=== PATIENT | female | born 1930 | race Caucasian/White ===

== ENCOUNTER 2019-08-13 13:33 | Inpatient (IN) ==
[2019-08-13] MEDS ORDERED: 0.9 % Sodium Chloride 1,000 ML IVC ONE (14:11)
[2019-08-13] MEDS ORDERED: cefTRIAXone 1,000 MG in Water for inj. (sterile) 10 ML IVP ONE (14:11)
[2019-08-13] MEDS ORDERED: Ondansetron 4 MG/2 ML VIAL IVP ONE (14:12)
[2019-08-13] MEDS ORDERED: Morphine Sulfate 2 MG/ML SYRINGE IVP ONE (14:12)
[2019-08-13 14:25] LABS: Bilirubin,Urine Small (Negative); Blood,Urine Negative (Negative); Clarity,Urine Slightly Cloudy (Clear); Color,Urine Yellow (Yellow); Glucose,Urine (UA) Normal (Normal); Ketones,Urine Negative (Negative); Leukocyte Esterase,Urine Small (Negative); Nitrite,Urine Negative (Negative); Protein,Urine Negative (Neg-Trace); Specific Gravity,Urine 1.025 (1.010-1.025); Urobilinogen,Urine Normal (Normal)
[2019-08-13 14:27] LABS: Bacteria,Urine Many per hpf (None-Few); Squamous Epithelial Cell,Urine Few per lpf (None-Few); WBC,Urine 50-100 per hpf (0-3)
[2019-08-13 14:28] LABS: Mucus,Urine Few (Few)
[2019-08-13 14:38] LABS: Basophils % 0.2 %; Eosinophils % 0.1 %; Hematocrit 35.5 % (35.3-44.9); Hemoglobin 11.5 g/dL (11.5-15.4); Immature Granulocytes % 0.5 % (0-4); Lymphocytes # 1.9 K/mcL (0.6-4.6); Lymphocytes % 10.1 %; Mean Corpuscular HGB Conc 32.4 g/dL (31.6-35.5); Mean Corpuscular Hemoglobin 29.3 pg (28.0-33.3); Mean Corpuscular Volume 90.6 fL (83.0-100.0); Mean Platelet Volume 10.4 fL (9.4-12.4); Monocytes % 5.2 %; Neutrophils # 15.4 K/mcL (1.6-8.9); Platelet Count 147 K/mcL (140-400); Red Blood Count 3.92 M/mcL (3.82-4.97); Red Cell Distribution Width 14.3 % (11.5-14.5); Segmented Neutrophils % 83.9 %; White Blood Count 18.4 K/mcL (4.3-11.1)
[2019-08-13 14:45] LABS: INR 1.1; Prothrombin Time 12.8 Seconds (9.4-12.1)
[2019-08-13 14:48] LABS: Activated Partial Thrombo Time 26.3 Seconds (26.0-36.0)
[2019-08-13 14:57] LABS: Albumin 3.7 g/dL (3.5-5.7); Albumin/Globulin Ratio 1.7 (1.1-2.2); Bilirubin,Direct 0.2 mg/dL (0.0-0.2); Bilirubin,Indirect 0.7 mg/dL (0.0-1.0); Bilirubin,Total 0.9 mg/dL (0.3-1.0); Calcium 8.9 mg/dL (8.6-10.3); Globulin 2.2 g/dL (2.4-3.5); Magnesium 2.3 mg/dL (1.6-2.6); Phosphorous 3.9 mg/dL (2.7-4.5); Potassium 4.7 mEq/L (3.5-5.1); Total Protein 5.9 g/dL (6.4-8.9); Troponin I 0.03 ng/mL (< 0.04)
[2019-08-13] MEDS ORDERED: Ibuprofen 400 MG TABLET PO PRN (16:27)
[2019-08-13] MEDS ORDERED: Ondansetron 4 MG/2 ML VIAL IVP PRN (16:27)
[2019-08-13] MEDS ORDERED: Naloxone 0.4 MG/ML INJ IVP PRN (16:27)
[2019-08-13] MEDS: Bumetanide 1 MG TABLET PO SCH (18:23)
[2019-08-13] MEDS: Aspirin 81 MG TAB.CHEW PO SCH (18:23)
[2019-08-13] MEDS: 0.9 % Sodium Chloride 1,000 ML IVC SCH (19:01)
[2019-08-13] MEDS: Melatonin 3 MG TABLET PO SCH (20:02)
[2019-08-13] MEDS: traZODone 50 MG TABLET PO SCH (20:02)
[2019-08-13] MEDS: *HR* HYDROcodone/Acet 5/325 mg TABLET PO SCH (20:02)
[2019-08-13] MEDS ORDERED: NIFEdipine XL (24 HR) 30 MG TAB.ER.24 PO SCH (21:00)
[2019-08-14] MEDS: *HR* OxyCODONE Immed Rel 5 MG TABLET PO PRN ×3 (02:41→14:07)
[2019-08-14] MEDS: 0.9 % Sodium Chloride 1,000 ML IVC SCH (05:51)
[2019-08-14] MEDS: Levothyroxine 25 MCG TABLET PO SCH ×2 (06:41→06:59)
[2019-08-14 07:08] LABS: Basophils % 0.3 %; Eosinophils # 0.2 K/mcL (0.0-0.6); Eosinophils % 1.3 %; Hematocrit 27.8 % (35.3-44.9); Hemoglobin 8.9 g/dL (11.5-15.4); Immature Granulocytes % 0.6 % (0-4); Lymphocytes # 1.7 K/mcL (0.6-4.6); Lymphocytes % 15.1 %; Mean Corpuscular Hemoglobin 29.3 pg (28.0-33.3); Mean Corpuscular Volume 91.4 fL (83.0-100.0); Mean Platelet Volume 10.4 fL (9.4-12.4); Monocytes # 0.6 K/mcL (0.0-1.3); Monocytes % 5.6 %; Neutrophils # 8.8 K/mcL (1.6-8.9); Platelet Count 109 K/mcL (140-400); Red Blood Count 3.04 M/mcL (3.82-4.97); Red Cell Distribution Width 14.7 % (11.5-14.5); Segmented Neutrophils % 77.1 %; White Blood Count 11.4 K/mcL (4.3-11.1)
[2019-08-14 07:37] LABS: Calcium 7.9 mg/dL (8.6-10.3); Potassium 4.7 mEq/L (3.5-5.1)
[2019-08-14] MEDS: cefTRIAXone 1,000 MG in 0.9 % Sodium Chloride Mini Bag 100 ML IVPB SCH (08:52)
[2019-08-14] MEDS: Cyanocobalamin (B-12) 1,000 MCG TABLET PO SCH (08:54)
[2019-08-14] MEDS: Cholecalciferol (D-3) 1,000 UNIT (25MCG) TABLET PO SCH (08:54)
[2019-08-14] MEDS: Tobramycin/Dex Opth DROPS 2.5 ML BOTTLE RIGHT EYE SCH ×2 (13:51→20:28)
[2019-08-14] MEDS: Tobramycin/Dex Opth DROPS 2.5 ML BOTTLE LEFT EYE SCH ×2 (13:51→20:28)
[2019-08-14] MEDS ORDERED: *HR* LORazepam 2 MG/ML VIAL IVP PRN (14:20)
[2019-08-14] MEDS: Melatonin 3 MG TABLET PO SCH (20:29)
[2019-08-14] MEDS: *HR* HYDROcodone/Acet 5/325 mg TABLET PO SCH (20:29)
[2019-08-14] MEDS: Lactobacillus 1 EACH CAP.SPRINK PO SCH (20:29)
[2019-08-14] MEDS: traZODone 50 MG TABLET PO SCH (20:29)
[2019-08-15] MEDS: *HR* OxyCODONE Immed Rel 5 MG TABLET PO PRN ×3 (00:54→18:51)
[2019-08-15] MEDS: Tobramycin/Dex Opth DROPS 2.5 ML BOTTLE RIGHT EYE SCH ×3 (04:50→20:12)
[2019-08-15] MEDS: Tobramycin/Dex Opth DROPS 2.5 ML BOTTLE LEFT EYE SCH ×3 (04:50→20:12)
[2019-08-15] MEDS: Levothyroxine 25 MCG TABLET PO SCH (06:40)
[2019-08-15 07:03] LABS: Basophils % 0.4 %; Eosinophils # 0.4 K/mcL (0.0-0.6); Eosinophils % 4.1 %; Hemoglobin 7.8 g/dL (11.5-15.4); Immature Granulocytes % 0.5 % (0-4); Lymphocytes # 1.8 K/mcL (0.6-4.6); Lymphocytes % 21.3 %; Mean Corpuscular HGB Conc 31.2 g/dL (31.6-35.5); Mean Corpuscular Volume 92.9 fL (83.0-100.0); Mean Platelet Volume 11.4 fL (9.4-12.4); Monocytes # 0.5 K/mcL (0.0-1.3); Neutrophils # 5.8 K/mcL (1.6-8.9); Red Blood Count 2.69 M/mcL (3.82-4.97); Red Cell Distribution Width 14.7 % (11.5-14.5); Segmented Neutrophils % 67.7 %; White Blood Count 8.6 K/mcL (4.3-11.1)
[2019-08-15 07:12] LABS: Platelet Count 87 K/mcL (140-400)
[2019-08-15 07:21] LABS: BUN/Creatinine Ratio 25 (6-26); Blood Urea Nitrogen 26 mg/dL (8-23); Carbon Dioxide 24 mEq/L (23-29); Chloride 108 mEq/L (98-107); Glucose 88 mg/dL (70-105); Osmolality,Calculated 286 (280-300); Potassium 4.5 mEq/L (3.5-5.1); Sodium 136 mEq/L (136-145); Uric Acid 5.9 mg/dL (2.3-7.6); eGFR For African Americans > 60 (> 60); eGFR For Non-African Americans 50 (> 60)
[2019-08-15 09:40] LABS: % Iron Saturation 6 % (15-50); Iron 13 mcg/dL (50-170); Transferrin 152 mg/dL (203-362)
[2019-08-15] MEDS: cefTRIAXone 1,000 MG in 0.9 % Sodium Chloride Mini Bag 100 ML IVPB SCH (09:56)
[2019-08-15 09:58] LABS: Ferritin 167 ng/mL (10-120)
[2019-08-15] MEDS: Lactobacillus 1 EACH CAP.SPRINK PO SCH ×2 (09:59→20:15)
[2019-08-15] MEDS: Cholecalciferol (D-3) 1,000 UNIT (25MCG) TABLET PO SCH (10:00)
[2019-08-15] MEDS: Cyanocobalamin (B-12) 1,000 MCG TABLET PO SCH (10:00)
[2019-08-15 11:35] LABS: Folate 18.7 ng/mL (3.0-16.0)
[2019-08-15] MEDS: Aspirin 81 MG TAB.CHEW PO SCH (17:25)
[2019-08-15] MEDS: Bumetanide 1 MG TABLET PO SCH (17:25)
[2019-08-15] MEDS: *HR* LORazepam 2 MG/ML VIAL IVP PRN (19:17)
[2019-08-15] MEDS: Melatonin 3 MG TABLET PO SCH (20:15)
[2019-08-15] MEDS: traZODone 50 MG TABLET PO SCH (20:16)
[2019-08-15] MEDS: *HR* HYDROcodone/Acet 5/325 mg TABLET PO SCH (20:16)
[2019-08-16] MEDS: Tobramycin/Dex Opth DROPS 2.5 ML BOTTLE RIGHT EYE SCH ×3 (05:00→21:44)
[2019-08-16] MEDS: Tobramycin/Dex Opth DROPS 2.5 ML BOTTLE LEFT EYE SCH ×3 (05:00→21:44)
[2019-08-16] MEDS: *HR* LORazepam 2 MG/ML VIAL IVP PRN ×3 (06:31→23:16)
[2019-08-16] MEDS: Ascorbic Acid 500 MG TABLET PO SCH (06:32)
[2019-08-16] MEDS: Levothyroxine 25 MCG TABLET PO SCH (06:32)
[2019-08-16] MEDS: *HR* OxyCODONE Immed Rel 5 MG TABLET PO PRN ×3 (06:36→23:12)
[2019-08-16] MEDS: *HR* Enoxaparin 30 MG/0.3 ML SYRINGE SQ SCH (08:15)
[2019-08-16 08:23] LABS: Basophils % 0.4 %; Eosinophils # 0.3 K/mcL (0.0-0.6); Eosinophils % 3.2 %; Hematocrit 23.8 % (35.3-44.9); Hemoglobin 7.6 g/dL (11.5-15.4); Immature Granulocytes % 0.8 % (0-4); Lymphocytes # 1.1 K/mcL (0.6-4.6); Lymphocytes % 14.7 %; Mean Corpuscular HGB Conc 31.9 g/dL (31.6-35.5); Mean Corpuscular Hemoglobin 29.5 pg (28.0-33.3); Mean Corpuscular Volume 92.2 fL (83.0-100.0); Mean Platelet Volume 10.7 fL (9.4-12.4); Monocytes # 0.7 K/mcL (0.0-1.3); Monocytes % 8.6 %; Neutrophils # 5.6 K/mcL (1.6-8.9); Red Blood Count 2.58 M/mcL (3.82-4.97); Red Cell Distribution Width 14.6 % (11.5-14.5); Segmented Neutrophils % 72.3 %; White Blood Count 7.8 K/mcL (4.3-11.1)
[2019-08-16 08:24] LABS: Platelet Count 84 K/mcL (140-400)
[2019-08-16 08:42] LABS: BUN/Creatinine Ratio 22 (6-26); Blood Urea Nitrogen 17 mg/dL (8-23); Calcium 7.6 mg/dL (8.6-10.3); Carbon Dioxide 23 mEq/L (23-29); Chloride 107 mEq/L (98-107); Glucose 90 mg/dL (70-105); Osmolality,Calculated 279 (280-300); Potassium 4.1 mEq/L (3.5-5.1); Sodium 134 mEq/L (136-145); eGFR For African Americans > 60 (> 60); eGFR For Non-African Americans > 60 (> 60)
[2019-08-16] MEDS: cefTRIAXone 1,000 MG in 0.9 % Sodium Chloride Mini Bag 100 ML IVPB SCH (10:17)
[2019-08-16] MEDS: Cyanocobalamin (B-12) 1,000 MCG TABLET PO SCH (10:20)
[2019-08-16] MEDS: Cholecalciferol (D-3) 1,000 UNIT (25MCG) TABLET PO SCH (10:20)
[2019-08-16] MEDS: Lactobacillus 1 EACH CAP.SPRINK PO SCH ×2 (10:21→21:42)
[2019-08-16] MEDS: traZODone 50 MG TABLET PO SCH (21:42)
[2019-08-16] MEDS: Melatonin 3 MG TABLET PO SCH (21:42)
[2019-08-16] MEDS: *HR* HYDROcodone/Acet 5/325 mg TABLET PO SCH (21:42)
[2019-08-17] MEDS: *HR* OxyCODONE Immed Rel 5 MG TABLET PO PRN ×2 (03:46→14:46)
[2019-08-17] MEDS: *HR* LORazepam 2 MG/ML VIAL IVP PRN ×2 (03:49→20:46)
[2019-08-17] MEDS: Tobramycin/Dex Opth DROPS 2.5 ML BOTTLE RIGHT EYE SCH ×3 (05:00→20:49)
[2019-08-17] MEDS: Tobramycin/Dex Opth DROPS 2.5 ML BOTTLE LEFT EYE SCH ×3 (05:00→20:49)
[2019-08-17] MEDS: Ascorbic Acid 500 MG TABLET PO SCH (06:35)
[2019-08-17] MEDS: Levothyroxine 25 MCG TABLET PO SCH (06:35)
[2019-08-17] MEDS: *HR* Enoxaparin 30 MG/0.3 ML SYRINGE SQ SCH (06:35)
[2019-08-17 06:56] LABS: Basophils % 0.4 %; Eosinophils # 0.2 K/mcL (0.0-0.6); Eosinophils % 3.2 %; Hematocrit 24.5 % (35.3-44.9); Hemoglobin 7.9 g/dL (11.5-15.4); Immature Granulocytes % 0.5 % (0-4); Lymphocytes # 1.9 K/mcL (0.6-4.6); Lymphocytes % 25.4 %; Mean Corpuscular HGB Conc 32.2 g/dL (31.6-35.5); Mean Corpuscular Hemoglobin 29.5 pg (28.0-33.3); Mean Corpuscular Volume 91.4 fL (83.0-100.0); Mean Platelet Volume 10.6 fL (9.4-12.4); Monocytes # 0.7 K/mcL (0.0-1.3); Monocytes % 9.4 %; Neutrophils # 4.6 K/mcL (1.6-8.9); Red Blood Count 2.68 M/mcL (3.82-4.97); Red Cell Distribution Width 14.4 % (11.5-14.5); Segmented Neutrophils % 61.1 %; White Blood Count 7.6 K/mcL (4.3-11.1)
[2019-08-17 06:59] LABS: Platelet Count 91 K/mcL (140-400)
[2019-08-17 07:28] LABS: Alanine Aminotransferase 17 Units/L (7-52); Albumin 2.8 g/dL (3.5-5.7); Albumin/Globulin Ratio 1.3 (1.1-2.2); Alkaline Phosphatase 52 Units/L (34-104); Aspartate Amino Transferase 20 Units/L (13-39); BUN/Creatinine Ratio 21 (6-26); Bilirubin,Total 0.9 mg/dL (0.3-1.0); Blood Urea Nitrogen 15 mg/dL (8-23); Calcium 7.8 mg/dL (8.6-10.3); Carbon Dioxide 23 mEq/L (23-29); Chloride 107 mEq/L (98-107); Globulin 2.2 g/dL (2.4-3.5); Glucose 85 mg/dL (70-105); Osmolality,Calculated 282 (280-300); Potassium 4.3 mEq/L (3.5-5.1); Sodium 136 mEq/L (136-145); eGFR For African Americans > 60 (> 60); eGFR For Non-African Americans > 60 (> 60)
[2019-08-17] MEDS ORDERED: cefTRIAXone 1,000 MG in Water for inj. (sterile) 10 ML IVPB SCH (09:00)
[2019-08-17] MEDS: Lactobacillus 1 EACH CAP.SPRINK PO SCH (09:34)
[2019-08-17] MEDS: Cyanocobalamin (B-12) 1,000 MCG TABLET PO SCH (09:34)
[2019-08-17] MEDS: Cholecalciferol (D-3) 1,000 UNIT (25MCG) TABLET PO SCH (09:34)
[2019-08-17] MEDS: Aspirin 81 MG TAB.CHEW PO SCH (17:38)
[2019-08-17] MEDS: Bumetanide 1 MG TABLET PO SCH (17:38)
[2019-08-17] MEDS: *HR* HYDROcodone/Acet 5/325 mg TABLET PO SCH (20:42)
[2019-08-17] MEDS: Melatonin 3 MG TABLET PO SCH (20:52)
[2019-08-17] MEDS: traZODone 50 MG TABLET PO SCH (20:52)
[2019-08-18] MEDS: *HR* LORazepam 2 MG/ML VIAL IVP PRN ×3 (02:06→13:47)
[2019-08-18] MEDS: Tobramycin/Dex Opth DROPS 2.5 ML BOTTLE LEFT EYE SCH ×2 (05:25→12:49)
[2019-08-18] MEDS: Tobramycin/Dex Opth DROPS 2.5 ML BOTTLE RIGHT EYE SCH ×2 (05:25→12:49)
[2019-08-18] MEDS: Ascorbic Acid 500 MG TABLET PO SCH (06:20)
[2019-08-18] MEDS: *HR* Enoxaparin 40 MG/0.4 ML SYRINGE SQ SCH ×2 (06:20→06:33)
[2019-08-18] MEDS: Levothyroxine 25 MCG TABLET PO SCH (06:20)
[2019-08-18 07:48] VITALS: BP 179/76
[2019-08-18 07:56] LABS: Basophils % 0.5 %; Eosinophils # 0.2 K/mcL (0.0-0.6); Eosinophils % 3.3 %; Hematocrit 24.7 % (35.3-44.9); Immature Granulocytes % 1.1 % (0-4); Lymphocytes # 1.5 K/mcL (0.6-4.6); Lymphocytes % 23.6 %; Mean Corpuscular HGB Conc 32.4 g/dL (31.6-35.5); Mean Corpuscular Hemoglobin 29.4 pg (28.0-33.3); Mean Corpuscular Volume 90.8 fL (83.0-100.0); Mean Platelet Volume 11.4 fL (9.4-12.4); Monocytes # 0.6 K/mcL (0.0-1.3); Monocytes % 9.8 %; Neutrophils # 3.8 K/mcL (1.6-8.9); Platelet Count 118 K/mcL (140-400); Red Blood Count 2.72 M/mcL (3.82-4.97); Red Cell Distribution Width 14.3 % (11.5-14.5); Segmented Neutrophils % 61.7 %; White Blood Count 6.2 K/mcL (4.3-11.1)
[2019-08-18 08:07] LABS: BUN/Creatinine Ratio 22 (6-26); Blood Urea Nitrogen 12 mg/dL (8-23); Calcium 7.9 mg/dL (8.6-10.3); Carbon Dioxide 23 mEq/L (23-29); Chloride 106 mEq/L (98-107); Glucose 90 mg/dL (70-105); Osmolality,Calculated 281 (280-300); Potassium 4.2 mEq/L (3.5-5.1); Sodium 136 mEq/L (136-145); eGFR For African Americans > 60 (> 60); eGFR For Non-African Americans > 60 (> 60)
[2019-08-18] MEDS: *HR* OxyCODONE Immed Rel 5 MG TABLET PO PRN ×2 (09:08→13:47)
[2019-08-18] MEDS: Cyanocobalamin (B-12) 1,000 MCG TABLET PO SCH (09:08)
[2019-08-18] MEDS: Cholecalciferol (D-3) 1,000 UNIT (25MCG) TABLET PO SCH (09:08)
[2019-08-19] MEDS ORDERED: Levothyroxine 25 MCG TABLET PO SCH (06:30)
== END 2019-08-18 14:24 | DRG 689 ==
LOC: INPPIK 13:33 → EMEROOPIK 13:33 → INPPIK 16:50
PROVIDERS: ADMIT Internal Medicine; ATTEND Family Medicine